=== PATIENT | female | born 1980 | race Caucasian/White ===

== ENCOUNTER 2018-05-06 13:30 | Inpatient (IN) ==
[2018-05-06 12:08] LABS: Protein/Creatinine Ratio,Urine 0.45 mg/mg (0.00-0.20)
[2018-05-06 12:46] LABS: Amphetamine Screen,Urine Negative ng/mL (Cutoff=1000); Barbiturate Screen,Urine Negative ng/mL (Cutoff=200)
[2018-05-06 12:47] LABS: Benzodiazepines Screen,Urine Negative ng/mL (Cutoff=300); Cannabinoid Screen,Urine Negative ng/mL (Cutoff = 50); Cocaine Screen,Urine Negative ng/mL (Cutoff= 300); Opiate Screen,Urine Negative ng/mL (Cutoff=300); Phencyclidine Screen,Urine Negative ng/mL (Cutoff=25)
[2018-05-06 12:51] LABS: Basophils % 0.3 %; Eosinophils # 0.1 K/mcL (0.0-0.6); Eosinophils % 0.7 %; Hematocrit 33.1 % (35.3-44.9); Hemoglobin 11.2 g/dL (11.5-15.4); Immature Granulocytes % 1.7 % (0-4); Lymphocytes # 1.9 K/mcL (0.6-4.6); Lymphocytes % 15.8 %; Mean Corpuscular HGB Conc 33.8 g/dL (31.6-35.5); Mean Corpuscular Hemoglobin 27.4 pg (28.0-33.3); Mean Corpuscular Volume 80.9 fL (83.0-100.0); Mean Platelet Volume 10.8 fL (9.4-12.4); Monocytes # 0.8 K/mcL (0.0-1.3); Monocytes % 6.4 %; Neutrophils # 9.1 K/mcL (1.6-8.9); Platelet Count 296 K/mcL (140-400); Red Blood Count 4.09 M/mcL (3.82-4.97); Red Cell Distribution Width 13.3 % (11.5-14.5); Segmented Neutrophils % 75.1 %
[2018-05-06] MEDS: Magnesium Sulfate 20 gm/500mL 20 GM/500 ML IV.SOLN IVC SCH ×2 (12:59→20:54)
--- NOTE | 2018-05-06 13:21 | OB/GYN History & Physical ---
Date of Encounter: 05/06/18 Time of Encounter: 13:07 Assessment and Plan (1) 33 weeks gestation of Current visit: Yes Status: Acute Admit to L&D for IOL. BMZ x 2 doses for Lung Maturity. PCN for GBS ppx. F/u GBS culture collected upon admission. Pt doesn't want her male infant circumcised. B pos, GBS unk, Sero neg. (2) Pre-eclampsia affecting , antepartum Current visit: Yes Status: Acute 6g magnesium sulfate loading does, 2g/hr continuous. 1g calcium gluconate to bedside. IVF rate to 125cc/hr max for all sources. Strict I/Os with bauman catheter to ground & I/O charting q 1hr. BP checks [id number] x 1hr, p55mxcc x 1hr, [id number] x 1hr & q1hr. Neuro/Mag checks q 1 hr by RN. (3) AMA (advanced maternal age) primigravida 35+ Current visit: Yes Status: Acute Qualifiers: Trimester: third trimester Qualified Code(s): O09.513 - Supervision of elderly primigravida, third trimester (4) Body mass index (BMI) of 40.1 to 44.9 in adult Current visit: Yes Status: Acute History of Present Illness Chief complaint: ELevated BP at home HPI: Ms. Damon is a 37 yo @ 33.6 wga by LMP, consistent with first trimester ultrasound, presents for evaluation of BP @ home. Her BP was 161/107 this morning. She checked her BP yesterday afternoon at work which was 140s systolic, because her feet were edematous. She checked this morning "just because". She denies any complications with this . +FM. She denies vaginal bleeding, LOF, CP, SOB, GRAMAJO, vision changes, RUQ/epigastric pain, ctxs/cramping, abnormal vaginal discharge or other complaints. She did take 1 Diflucan on the for a diagnosis of vaginal candidiasis by Dr. Colon on the . She's had routine PNC w/ [facility]. Past Med Surg Social Fam HX - Past Medical History Source: patient Medical history: kidney stones, venous stasis, other (obesity) Additional medical history: left collar bone sx Psychiatric history: no psych history - Past Surgical History Surgical History: other (2001- Left knee surgery, 2016- Left Clavical surgery, 22yo- wisdom teeth x4) - Social History Smoking Status: Former smoker (Pt stated "never smoker" on initial PNV & to me during H&P) Alcohol use: none Drug use: none Occupational status: employed Current living situation: Home Activity Level: Independent ambulation Recent Out of Country Travel Within the Last 8 Weeks: No Exposure or Possible Exposure to Illness During Travel: No - Additional Family History Additional family history: 2 aunts from Breast [place], no other LOCKSMITH [place] in family Obstetrical History - Pregnancies : 1 Para: 0 Term: 0 : 0 Ab's: 0 Livin - History/Complications 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 Denies h/o STIs or abnormal paps. LMP 09/11/17. Medications and Allergies One Daily Tablet 1 tab PO DAILY 05/06/18 [History] Allergy/AdvReac Type Severity Reaction Status Date / Time No Known Allergies Allergy Verified 05/06/18 12:50 Review of System OB ROS unobtainable: other (Negative outside of HPI) Exam - Vital Signs Vital signs: 179/96 upon presentation to L&D. 75bpm, 98.1F - Constitutional Constitutional: no acute distress, obese - HEENT HEENT: Normocephaly - Neck Neck exam: full ROM, trachea midline - Lungs Respiratory exam: CTAB - Cardiovascular Cardiovascular exam: RRR, +S1, +S2 - Abdomen Abdomen: Present: bowel sounds normal, gravid, non tender (obese) - Extremities Extremities exam: normal capillary refill, pedal edema (2+), warm Deep Tendon Reflex Grade: 2+ Normal - Cervix Dilation: 0 Station: -3 - Uterus Uterus exam: Present: normal size, normal contour Results Result Diagrams: 05/06/18 11:45 Abnormal lab results WBC 12.1 K/mcL (4.3-11.1) H 05/06/18 11:45 Hgb 11.2 g/dL (11.5-15.4) L 05/06/18 11:45 Hct 33.1 % (35.3-44.9) L 05/06/18 11:45 MCV 80.9 fL (83.0-100.0) L 05/06/18 11:45 MCH 27.4 pg (28.0-33.3) L 05/06/18 11:45 Neutrophils # 9.1 K/mcL (1.6-8.9) H 05/06/18 11:45 Protein/Creatinin Ratio 0.45 mg/mg (0.00-0.20) H 05/06/18 11:45 Urine Total Protein 105 mg/dL (1-14) H 05/06/18 11:45 All other labs normal. PNL: B pos, ab neg, GBS unk, GC/CT neg, HIV NR, Hep B neg, Rub Imm, Janki Imm, RPR NR, RUDS neg, genetic screening neg - VTE Reasons for not Prescribing Prophylaxis: Treatment not Indicated - Low risk for VTE Deep Vein Thrombosis/Pulmonary Embolism Present on Admission: No
[~2018-05-06 13:30] MED LIST: *HR* Labetalol 20 MG/4 ML SYRINGE IVP ONE; Betamethasone Acet/SodPhos 6 MG/ML MDV IM SCH; Calcium Gluconate 1,000 MG/10 ML VIAL IVPB PRN; Penicillin G Potassium 5,000,000 UNIT in 0.9 % Sodium Chloride Mini Bag 100 ML IVPB STA; Ringers Solution, Lactated 1,000 ML IVC SCH
[2018-05-06 13:51] LABS: Alanine Aminotransferase 35 Units/L (7-52); Aspartate Amino Transferase 15 Units/L (13-39); BUN/Creatinine Ratio 16 (6-26); Blood Urea Nitrogen 17 mg/dL (6-20); Lactate Dehydrogenase 140 Units/L (140-271); Uric Acid 6.6 mg/dL (2.3-7.6); eGFR For Non-African Americans 57 (> 60)
[2018-05-06] MEDS ORDERED: Epidural Premix (fent/bupiv) 110 ML EP SCH (14:15)
[2018-05-06] MEDS: miSOPROStol 25 MCG TABLET VG PRN ×2 (14:43→18:44)
--- NOTE | 2018-05-06 14:51 | OB/GYN Progress Note ---
Date of Encounter: 05/06/18 Time of Encounter: 14:48 - Assessment and Plan (1) 33 weeks gestation of Current Visit: Yes Status: Acute Admit to L&D for IOL. BMZ x 2 doses for Lung Maturity. PCN for GBS ppx. F/u GBS culture collected upon admission. Pt doesn't want her male circumcised. B pos, GBS unk, Sero neg. (2) Pre-eclampsia affecting , antepartum Current Visit: Yes Status: Acute 6g magnesium sulfate loading does, 2g/hr continuous. 1g calcium gluconate to bedside. IVF rate to 125cc/hr max for all sources. Strict I/Os with bauman catheter to ground & I/O charting q 1hr. BP checks [id number] x 1hr, j91svfi x 1hr, m99soby x 1hr & q1hr. Neuro/Mag checks q 1 hr by RN. (3) Encounter for induction of labor Current Visit: Yes Status: Acute Ripen w/ PV 25mcg of Cytotec q 3-4hrs. Cont EFM & TOCO. Pain management PRN. (4) AMA (advanced maternal age) primigravida 35+ Current Visit: Yes Status: Acute Qualifiers: Trimester: third trimester Qualified Code(s): O09.513 - Supervision of elderly primigravida, third trimester (5) Body mass index (BMI) of 40.1 to 44.9 in adult Current Visit: Yes Status: Acute Subjective - Subjective Principal diagnosis: Medical Induction of Labor Interval history: Physician to room to place first dose of 25mcg of PV Cytotec for cervical ripening. Bedside US performed to confirm vtx presentation, placenta is posterior-fundal. SVE: 1/0/-3, posterior & firm. Cytotec placed without difficulty. Pt tolerated well. FOB at bedside. Antepartum ROS: movement normal Objective - Vital Signs Vital Signs: Intake and Output 05/05/18 05/06/18 05/06/18 23:59 07:59 15:59 Other: Weight 106.8 kg Patient Weight 05/06/18 23:59 Weight 106.8 kg BPs for the past hour: 139-154/86-93 - Exam FHR: category 1 FHR comments: FHR Tracing; 120/mod priya/+accels/no decels TOCO: irritable Abdomen: Present: soft, gravid Cervical dilation: 1 Cervix effacement: 0 station: -3 Comments: Hamlin score: 1 - Labs Labs: Abnormal lab results WBC 12.1 K/mcL (4.3-11.1) H 05/06/18 11:45 Hgb 11.2 g/dL (11.5-15.4) L 05/06/18 11:45 Hct 33.1 % (35.3-44.9) L 05/06/18 11:45 MCV 80.9 fL (83.0-100.0) L 05/06/18 11:45 MCH 27.4 pg (28.0-33.3) L 05/06/18 11:45 Neutrophils # 9.1 K/mcL (1.6-8.9) H 05/06/18 11:45 Est GFR (Non-Af Amer) 57 (> 60) L 05/06/18 11:45 Protein/Creatinin Ratio 0.45 mg/mg (0.00-0.20) H 05/06/18 11:45 Urine Total Protein 105 mg/dL (1-14) H 05/06/18 11:45
[2018-05-06] MEDS ORDERED: *HR* Labetalol 20 MG/4 ML SYRINGE IVP STA (16:41)
[2018-05-06] MEDS ORDERED: Penicillin G Potassium 2,500,000 UNIT in 0.9 % Sodium Chloride 100 ML IVPB SCH (17:00)
[2018-05-06] MEDS ORDERED: Lidocaine -MPF 1% 5 ML AMPUL ONE ×2 (20:26→22:40)
[2018-05-06] MEDS ORDERED: Famotidine 20 MG/2 ML VIAL IVP ONE (22:32)
[2018-05-06] MEDS ORDERED: CeFAZolin Premix DUPLEX 2,000 MG/50 ML BAG IVPB ONE (22:32)
[2018-05-06] MEDS ORDERED: Metoclopramide 10 MG/2 ML VIAL IVP ONE (22:32)
[2018-05-06] MEDS ORDERED: Oxytocin 20 units/ LR 1000 mL 20 UNIT/1,000 ML BAG IVC ONE (22:32)
[2018-05-06] MEDS ORDERED: EPHEDrine 50 MG/ML VIAL ONE (22:40)
[2018-05-06] MEDS ORDERED: *HR* FentaNYL (PF) 100 MCG/2 ML VIAL ONE (22:40)
[2018-05-06] MEDS ORDERED: *HR* Oxytocin 10 UNIT/ML VIAL IM ONE (22:40)
[2018-05-06] MEDS ORDERED: *HR* Morphine Sulfate/PF 10 MG/10 ML AMPUL ONE (22:40)
[2018-05-06] MEDS ORDERED: Ondansetron 4 MG/2 ML VIAL ONE (22:40)
[2018-05-06] MEDS ORDERED: Ringers Solution, Lactated 1,000 ML ONE (22:41)
[2018-05-06] MEDS ORDERED: *HR* HYDROmorphone (PF) 1 MG/ML SYRINGE IVP PRN (22:47)
[2018-05-06] MEDS ORDERED: Ketamine *HR* 500 MG/10 ML MDV ONE (23:08)
--- NOTE | 2018-05-06 23:24 | Anesthesia Procedures ---
Date of Encounter: 05/06/18 Time of Encounter: 23:22 Procedures: Anesthesia - Epidural/Spinal Patient ID/Chart reviewed: Yes Patient examined: Yes OB Eval: Gestational age: 33.6 OB Eval: : 1 OB Eval: Hx Para: 0 OB Eval: Contractions: Non-stressed pattern Consent Obtained: Yes Supplemental Oxygen: Nasal Cannula Supplemental Oxygen Rate (L/min): 4 Site Prep: Aseptic Technique, Sterile prep and drape, Povidone-Iodine 1% Patient position: upright Local Anesthetic: Lidocaine 1% Amount of Local Anesthetic used: 3 Blood: No CSF: Yes Paresthesia: No Spinal Needle Gauge: 25 (Sprotte) Spinal Dose: 2ml .5% bupivacaine 15mcg fentanyl 0.2mg duramorph Procedure: pt tolerated procedure well. no complications. vss. fhr stable. Spinal time = 2302
--- NOTE | 2018-05-06 23:26 | Anesthesia Evaluation PreOp ---
Date of Encounter: 05/06/18 Time of Encounter: 23:24 - Past History Planned Operation: Primary c/s Cardiac History: HTN (Gestational. 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 History: Denies Any Significant HX Other Medical History: Denies Any Significant HX Anesthesia History: No Prior Anesthetic Complications, Past Anesthesia : Yes (33.6) Alcohol Use: none Drug use: none Medications and Allergies One Daily Tablet 1 tab PO DAILY 05/06/18 [History] Allergy/AdvReac Type Severity Reaction Status Date / Time No Known Allergies Allergy Verified 05/06/18 12:50 - Meds/Allergy Pre-op Review Medications Reviewed: Yes Allergies Reviewed: Yes Beta Blockers on Current Med List: Yes (05/06 792) Anesthesia Results - Labs 05/06/18 11:45 05/06/18 11:45 Anesthesia Exam O2 Sat Height 1.61 m Height 1.61 m Weight 106.8 kg Weight 106.8 kg NPO (# of Hours): 4 Pain Scale: 7 Pain Scale Used: Numeric (1 - 10) - HEENT Pupil (Motor): Pupils equal Mallampati: II Teeth: Normal Oral Opening: Greater than 3 - BACK SHOE CUTTER LOC: Oriented BACK SHOE CUTTER Motor: Normal RUE, Normal LUE, Normal RLE, Normal LLE, Normal Face BACK SHOE CUTTER Sensory: Normal: RUE, LUE, RLE, LLE, Face - Cardiac Rhythm: Regular Murmur: None JVD: No Carotid Bruit: No - Pulmonary Breath Sounds: bilateral Clear Respiratory Effort: Symmetrical Anesthesia Assess/Plan ASA Score: 3 Level of consciousness: Cooperative, Oriented Anesthetic Plan: Spinal Autologous Blood: Yes Monitoring Plan: Standard Monitors Recovery Plan: PACU
[2018-05-06] MEDS ORDERED: Bupivacaine/PF 0.75% in Dex 2 ML AMPUL INFILT ONE (23:38)
[2018-05-07] MEDS ORDERED: Metoclopramide 10 MG/2 ML VIAL IVP PRN ×2 (00:25→08:55)
[2018-05-07] MEDS ORDERED: Ondansetron 4 MG/2 ML VIAL IVP PRN ×2 (00:25→08:55)
[2018-05-07] MEDS ORDERED: *HR* OxyCODONE/APAP 5/325 TABLET PO PRN ×2 (00:25→08:55)
[2018-05-07] MEDS ORDERED: Oxytocin 20 units/ LR 1000 mL 20 UNIT/1,000 ML BAG IVC SCH ×2 (00:30→08:55)
[2018-05-07] MEDS ORDERED: Ketorolac 30 MG/ML VIAL IVP SCH ×2 (00:42→12:00)
--- NOTE | 2018-05-07 01:46 | OB/GYN Procedure Note ---
Section - Date of procedure: 05/06/18 Preop diagnosis: category 2 FHT tracing (persistent catergory 2), other (Pre- eclampsia with severe features, IUP @ 33.6 wga) Post-op diagnosis: same Procedure: section, primary low transverse Surgeon: Noelle Alba Blood Loss: 500 Was there an assistant offset press operator present: Yes Plate Mill Mill Hand: Em Sheets Anesthesiologist: Nasim Parkinson Quantitative Equity Head: Binu Wallace Anesthesia Type: Spinal section complications: none Disposition: L&D Recovery Room Specimens: Placenta, Cord blood, Cord gasses - Infant (s) Infant A Infant Delivery Date: 05/06/18 Delivery Time: 23:13 Presentation: vertex Gender: Male Viability: Viable Pounds: 4 Ounces: 13 Gram Weight: 2.18 kg at 1 minute: 6 at 5 minutes: 8 Shoulder Dystocia: not encountered Specimens collected: cord blood, venous cord gases, arterial cord gases Placenta: spontaneous - Narrative Narrative: Operation Performed Primary Low Transverse Section Indication for Surgery 37yo at 33.6 wga by LMP presented to labor and delivery for evaluation of elevated blood pressures at home. She was diagnosed with preeclampsia with severe features and started on magnesium sulfate. She received her first vaginal Cytotec at 1446, after which she had few, intermittent variable and late decelerations. Between these she would have moderate variability and accelerations. Her second dose of Cytotec was placed in 1800 hour following a category 1 heart rate tracing. Just before 2000 she began to experience recurrent late and variable decelerations. She would have minimal to moderate variability between these episodes. Position changes and O2 by nasal cannula slightly improved the heart rate variability, few accelerations were noted. The decelerations progressed in depth and took longer to recover. Minimal variability persisted. scalp stim did not elicit any accelerations. status was believed to be compromised and the patient was counseled to consider a primary section. The patient was informed of the risks and benefits of a section. Risks included but were not limited to bleeding, infection, injury to the presenting part of the fetus, injury to the bladder, bowel, ureters and the surrounding neurovasular bundles. The patient expressed understanding of the risks involved. All questions were answered and the patient consented to the procedure. Preoperative Diagnosis 1. IUP @ 33.6 wga 2. Persisting category 2 heart rate tracing 3. Class III obesity, BMI 41 4. Preeclampsia with severe features Postoperative Diagnosis Same Surgeon Noelle Lopez D.O. Plate [place] Mill Hand(s) Em Sheets Anesthesia Spinal with Duramorph Estimated Blood Loss 500 mL Urine Output 50 mL of clear yellow urine IV Fluids 1700 mL crystalloid Specimen(s) Placenta, Cord gasses, Cord blood Findings Live male , weighing 4 pounds and 13 ounces, with APGARS of 6/8. Normal appearing uterus, tubes and ovaries bilaterally. Complications None Technique The patient was taken to the operating room where a timeout was performed to confirm correct patient and correct procedure. Preoperative antibiotics were administered and spinal anesthesia was found to be adequate. Immediately prior to the patient lying down on the operating table, heart tones were seen to drop down into the 70s. The patient was prepped with Betadine solution and draped in the usual sterile fashion for a section, in supine position with a leftward tilt of the hips. A Pfannenstiel skin incision was made with a scalpel. Dissection to the fascia was carried out using blunt and sharp dissection. The fascia was incised with a scalpel and the incision was extended laterally using curved Donahue scissors. Jennifer clamps were used to tent up the superior edge of the fascia and the underlying rectus muscles were dissected off using blunt and sharp dissection. Attention was then turned to the inferior fascial edge and dissection carried out in a similar manner. The rectus muscles were then in the midline and the peritoneum was entered using blunt and sharp dissection. The peritoneum was grasped with hemostats at the superior aspect, care was taken to avoid the bladder, and incised with Metzenbaum scissors. The peritoneal incision was extended using light traction. A bladder blade was inserted, the vesicoperitoneal reflection was identified, and a bladder flap was created using Metzenbaum scissors and blunt dissection. The bladder blade was then replaced to protect the bladder. The lower uterine segment was incised with a scalpel in transverse fashion. The hysterotomy was extended laterally with blunt traction in cephalad and caudad directions. The fetus was in vertex presentation. The surgeon's hand was placed under the 's head and the delivered through the hysterotomy with the assistance of fundal pressure. The mouth and nose were bulb suctioned and the cord was clamped 2 and cut. The infant was safely transferred to the warmer for further care by the veterinary milk specialist. Cord blood and gases were obtained for routine testing. The placenta, with three-vessel cord, was expressed intact. The uterus was wiped clean of clots and debris before closing the hysterotomy with a running locked 0 Vicryl suture. A non-hemostatic area was noted inferior to the right apex of the hysterotomy. A single [id number] stitch was placed. Hemostasis was improved, however, oozing was noted where the sutures were placed through the serosa. A single sheet of Surgicel was placed to assist with hemostasis. Excellent hemostasis obtained. The rectus muscles and underlying peritoneum were reapproximated with 3-0 Vicryl in an interrupted fashion. The fascia was closed using Stratafix suture in a running nonlocked fashion. The subcutaneous tissue was closed with 0 plain suture in a running nonlocked fashion. The skin was closed with a subcuticular stitch of 4-0 Vicryl. The patient tolerated the procedure well At the end of the procedure, all needle sponge and instrument counts were noted to be correct 2. The patient tolerated the procedure well and was transferred to the recovery room in stable condition.
[2018-05-07] MEDS ORDERED: Acetaminophen 325 MG TABLET PO SCH ×2 (06:00→12:00)
[2018-05-07] MEDS: Magnesium Sulfate 20 gm/500mL 20 GM/500 ML IV.SOLN IVC SCH (07:22)
[2018-05-07] MEDS ORDERED: Magnesium Sulfate 20 gm/500mL 20 GM/500 ML IV.SOLN IVC SCH (08:55)
[2018-05-07] MEDS ORDERED: Calcium Gluconate 1,000 MG/10 ML VIAL IVPB PRN (08:55)
[2018-05-07] MEDS ORDERED: Ringers Solution, Lactated 1,000 ML IVC SCH (08:55)
[2018-05-07] MEDS ORDERED: Prenatal Vit/FA 1 EACH TABLET PO SCH (09:00)
[2018-05-07] MEDS ORDERED: Simethicone 80 MG TAB.CHEW PO SCH (09:00)
[2018-05-07 09:04] LABS: Basophils % 0.2 %; Hematocrit 32.4 % (35.3-44.9); Hemoglobin 10.6 g/dL (11.5-15.4); Immature Granulocytes % 1.8 % (0-4); Lymphocytes # 1.4 K/mcL (0.6-4.6); Lymphocytes % 6.6 %; Mean Corpuscular HGB Conc 32.7 g/dL (31.6-35.5); Mean Corpuscular Hemoglobin 27.1 pg (28.0-33.3); Mean Corpuscular Volume 82.9 fL (83.0-100.0); Mean Platelet Volume 10.8 fL (9.4-12.4); Monocytes # 1.2 K/mcL (0.0-1.3); Monocytes % 5.8 %; Neutrophils # 17.8 K/mcL (1.6-8.9); Platelet Count 286 K/mcL (140-400); Red Blood Count 3.91 M/mcL (3.82-4.97); Red Cell Distribution Width 13.5 % (11.5-14.5); Segmented Neutrophils % 85.6 %
--- NOTE | 2018-05-07 11:13 | OB/GYN Progress Note ---
Date of Encounter: 05/07/18 Time of Encounter: 10:00 - Assessment and Plan (1) Pre-eclampsia affecting , antepartum Current Visit: Yes Status: Acute 37yo s/p pLTCS for NRFWB in the setting of an IOL for severe pre-eclampsia. 1. management - pain controlled with po/IV regimen - bauman in place with adequate output - not yet ambulating with IV Mag (24hr PP) - EBL ~500mL, no si/sx of ABL anemia - patient did not require PP IV ABx, intact prior to CS - repeat CBC in AM on POD#2 2. Severe PReE - IOL at 33wks for severe PreE - currently with 24hr IV Mag - denies si/sx of PReE: no GRAMAJO/Cp/SOB/difficulty breathing - bauman in place and patient not to ambulate until completion of IV MAg - OK for crackers and clears, will ADAT once patient completes 24hr Dispo: Will continue to progress toward PP Milestones. Once IV Mag is complete, we will remove the bauman, ADAT, and allow patient to ambulate. MD ARIEL Subjective - Subjective Principal diagnosis: PLTCS Interval history: Patient started on IV Magnesium in the PP setting following STAT pLTCS, failed IOL for NRFWB. Patient reports: appetite normal, pain well controlled (Patient is still on IV magnesium until completion of 24hrs. Bauman in place, not yet ambulating, only OK for crackers PP until completed 24hr. PAin is adequately controlled on PO/IV regmen, and IVF are continued. Denies GRAMAJO/SP/SOB, denies blurry vision or RUQ pain.) [place]: doing well Objective - Vital Signs Latest vital signs: Vital Signs Temp Pulse Pulse Resp BP Pulse Ox 05/07/18 11:00 74 16 110/72 05/07/18 10:00 73 16 113/73 05/07/18 09:00 74 16 111/72 05/07/18 08:00 97.4 F L 78 78 16 113/73 95 05/07/18 07:00 97.8 F 78 16 104/63 93 05/07/18 06:00 97.7 F 77 26 113/70 95 05/07/18 05:00 97.6 F 78 16 116/70 93 05/07/18 04:00 97.8 F 77 16 126/74 94 05/07/18 03:00 97.5 F L 73 16 116/69 93 05/07/18 02:30 97.8 F 73 16 118/72 94 Intake and Output 05/06/18 05/07/18 05/07/18 23:59 07:59 15:59 Intake Total 500 / 500 500 / 500 Output Total 850 / 850 530 / 530 375 / 375 Balance -350 / -350 -30 / -30 -375 / -375 Intake: IV Fluids 500 / 500 500 / 500 Magnesium Sulfate Premix 20 gm/ 500 / 500 500 / 500 500mL 20 gm In 500 ml @ 2 GM/HR 50 mls/hr IVC .Q10H ERA Rx#: [id number] Output: Urine 530 / 530 375 / 375 Straight Cath 150 / 150 Catheter 700 / 700 - Exam Lungs: bilateral: normal Chest: Normal S1, Normal S2 Extremities: Present: normal Abdomen: Present: normal appearance, soft, gravid Incision: Present: normal, dry, intact, dressed (Wound VAC on incision.) Uterus: Present: normal - Labs Labs: Laboratory Results - last 24 hr 05/06/18 05/06/18 05/06/18 11:45 11:45 11:45 WBC 12.1 H RBC 4.09 Hgb 11.2 L Hct 33.1 L MCV 80.9 L MCH 27.4 L MCHC 33.8 RDW 13.3 Plt Count 296 MPV 10.8 Immature Gran % 1.7 Seg Neutrophils % 75.1 Lymphocytes % 15.8 Monocytes % 6.4 Eosinophils % 0.7 Basophils % 0.3 Neutrophils # 9.1 H Lymphocytes # 1.9 Monocytes # 0.8 Eosinophils # 0.1 Basophils # 0.0 BUN Creatinine Est GFR ( Amer) Est GFR (Non-Af Amer) BUN/Creatinine Ratio Uric Acid AST ALT Lactate Dehydrogenase Urine Creatinine 234 Protein/Creatinin Ratio 0.45 H Urine Total Protein 105 H Urine Opiates Screen Negative Ur Barbiturates Screen Negative Ur Phencyclidine Scrn Negative Ur Amphetamines Screen Negative U Benzodiazepines Scrn Negative Urine Cocaine Screen Negative U Marijuana (THC) Screen Negative Ur Drug Screen Interp See Below 05/06/18 05/07/18 11:45 07:40 WBC 20.8 H D RBC 3.91 Hgb 10.6 L Hct 32.4 L MCV 82.9 L MCH 27.1 L MCHC 32.7 RDW 13.5 Plt Count 286 MPV 10.8 Immature Gran % 1.8 Seg Neutrophils % 85.6 Lymphocytes % 6.6 Monocytes % 5.8 Eosinophils % 0.0 Basophils % 0.2 Neutrophils # 17.8 H Lymphocytes # 1.4 Monocytes # 1.2 Eosinophils # 0.0 Basophils # 0.0 BUN 17 Creatinine 1.09 Est GFR ( Amer) > 60 Est GFR (Non-Af Amer) 57 L BUN/Creatinine Ratio 16 Uric Acid 6.6 AST 15 ALT 35 Lactate Dehydrogenase 140 Urine Creatinine Protein/Creatinin Ratio Urine Total Protein Urine Opiates Screen Ur Barbiturates Screen Ur Phencyclidine Scrn Ur Amphetamines Screen U Benzodiazepines Scrn Urine Cocaine Screen U Marijuana (THC) Screen Ur Drug Screen Interp
[2018-05-07] MEDS: Prenatal Vit/FA 1 EACH TABLET PO SCH (12:05)
[2018-05-07] MEDS: Ibuprofen 600 MG TABLET PO SCH ×2 (12:06→19:58)
[2018-05-07] MEDS: Simethicone 80 MG TAB.CHEW PO SCH ×2 (12:07→19:58)
[2018-05-07] MEDS ORDERED: Ringers Solution, Lactated 1,000 ML IVC ONE (12:39)
--- NOTE | 2018-05-07 12:43 | Event Note ---
Date of Encounter: 05/07/18 Time of Encounter: 12:39 Called to patient bedside to speak with regarding need for IV Magnesium. Patient and patient had question(S) regarding the necessity of IV Mag for 24hr following delivery as her BP had nromalized after baby was delivered. We discussed what exactly pre-eclampsia is, as well as ecclampsia. We discussed the mutliple risks associated with someone diagnosed with Severe PreE, especially one that required an emergent delivery for NRFWB at 33wks GA. Patient and patient had question(S) regarding the side effects of IV magnesium, as well as if she could stop at 18hr. Again, recommendation(s) for severe pre-eclampsia is to continue IV Mag for a total of 24hr PP, regardless of time spent intrapartum on IV magnesium. We agreed to order a STAT Mag level as well as q4hr until we reachd 18hr. She has not required anti-hypertensive medication(s) since intrapartum. Patient is voiding adequately but is borderline low. STAT IVF bolus ordered 1L. Will f/u on mag level. MD ARIEL
[2018-05-08] MEDS: Ibuprofen 600 MG TABLET PO SCH ×3 (01:25→16:28)
--- NOTE | 2018-05-08 07:18 | OB/GYN Progress Note ---
Date of Encounter: 05/08/18 Time of Encounter: 07:12 - Assessment and Plan (1) Pre-eclampsia affecting , antepartum Current Visit: Yes Status: Acute 37yo s/p pLTCS for NRFWB in the setting of an IOL for severe pre-eclampsia, POD#2 1. management - STAT pLTCS on 05/06/2018 - pain controlled with po/IV regimen - bauman removed this AM, awaiting spontaneously void - EBL ~500mL, no si/sx of ABL anemia - patient to ambulate this AM 2. Severe PReE - IOL at 33wks for severe PreE - completed 18hr of IV Mag, stopped early with concern for mag toxicity - continued IV hydration overnight, repeat MAG level this AM (>8 on 05/07) - UOP adequate, bauman removed this AM; awaiting spontaneous void - denies si/sx of PReE: no GRAMAJO/Cp/SOB/difficulty breathing - regular DIET ordered: denies n/v/d Dispo: Will continue to progress toward PP Milestones. Likely for discharge to home tomorrow on 05/09/2018. MD ARIEL Subjective - Subjective Principal diagnosis: POD#2 s/p STAT pLTCS Interval history: S/p 18hr Magnesium for Severe Preeclampsia. Seen yesterday afternoon with decreased reflexes, difficulty moving limbs. Concern for mag toxicity. STAT Mag level was >8, therefore we discontinued the IV Mag, and continued with IV hydration to ultimately flush out the excess mag. Since this time, the patient has been doing well with signs of significant improvement. Since delivery, her blood pressures have remained 110s/70-80s. No si/sx of persistent pre-ecl ampsia: GRAMAJO/CP/SOB, difficulty breathing, blurry vision, RUQ pain. We continued with IV fluids overnight and kept her bauman in place to ensure appropriate urine output. Overnight her urine output was yellow with pink hue early in the evening. Her bauman was removed this morning with plans to ensure independent voiding. Repeat MAG level drawn this morning. Patient reports: appetite normal, voiding normally, pain well controlled, ambulating normally [place]: doing well Objective - Vital Signs Latest vital signs: Vital Signs Temp Pulse Pulse Resp BP Pulse Ox 05/08/18 05:00 98.2 F 69 16 128/78 97 05/08/18 00:00 98.3 F 72 16 135/84 93 05/07/18 19:55 98.2 F 71 16 124/79 95 05/07/18 18:00 16 05/07/18 17:05 97.4 F L 78 16 123/81 93 05/07/18 13:51 63 14 114/74 05/07/18 13:00 68 16 115/71 05/07/18 12:00 97.4 F L 68 16 115/67 95 05/07/18 11:00 74 16 110/72 05/07/18 10:00 73 16 113/73 05/07/18 09:00 74 16 111/72 05/07/18 08:00 97.4 F L 78 78 16 113/73 95 Intake and Output 05/07/18 05/07/18 05/08/18 15:59 23:59 07:59 Intake Total 200 / 200 Output Total 515 / 515 1350 / 1350 1080 / 1080 Balance -515 / -515 -1350 / -1350 -880 / -880 Intake: Oral 200 / 200 Output: Urine 515 / 515 Catheter 1350 / 1350 1080 / 1080 Other: Weight 106.685 kg Patient Weight 05/08/18 23:59 Weight 106.685 kg - Exam Lungs: bilateral: normal Extremities: Present: normal Abdomen: Present: normal appearance, soft, gravid Incision: Present: normal, dry, intact, dressed (chavez wound vac in place for 7 days) Uterus: Present: normal - Labs Labs: Laboratory Results - last 24 hr 05/07/18 05/07/18 07:40 13:30 WBC 20.8 H D RBC 3.91 Hgb 10.6 L Hct 32.4 L MCV 82.9 L MCH 27.1 L MCHC 32.7 RDW 13.5 Plt Count 286 MPV 10.8 Immature Gran % 1.8 Seg Neutrophils % 85.6 Lymphocytes % 6.6 Monocytes % 5.8 Eosinophils % 0.0 Basophils % 0.2 Neutrophils # 17.8 H Lymphocytes # 1.4 Monocytes # 1.2 Eosinophils # 0.0 Basophils # 0.0 Magnesium > 8.0 H
[2018-05-08] MEDS: Prenatal Vit/FA 1 EACH TABLET PO SCH (08:26)
[2018-05-08] MEDS: Simethicone 80 MG TAB.CHEW PO SCH (20:07)
[2018-05-09] MEDS ORDERED: Ibuprofen 600 MG TABLET PO SCH (04:00)
[2018-05-09 05:14] LABS: Basophils # 0.1 K/mcL (0.0-0.2); Basophils % 0.4 %; Eosinophils # 0.2 K/mcL (0.0-0.6); Eosinophils % 1.5 %; Hematocrit 30.2 % (35.3-44.9); Hemoglobin 9.7 g/dL (11.5-15.4); Immature Granulocytes % 2.8 % (0-4); Lymphocytes # 2.4 K/mcL (0.6-4.6); Lymphocytes % 20.7 %; Mean Corpuscular HGB Conc 32.1 g/dL (31.6-35.5); Mean Corpuscular Hemoglobin 27.2 pg (28.0-33.3); Mean Corpuscular Volume 84.6 fL (83.0-100.0); Mean Platelet Volume 10.6 fL (9.4-12.4); Monocytes # 0.9 K/mcL (0.0-1.3); Monocytes % 7.4 %; Neutrophils # 7.9 K/mcL (1.6-8.9); Nucleated Red Blood Cells 0.2 /100 WBC (0); Platelet Count 280 K/mcL (140-400); Red Blood Count 3.57 M/mcL (3.82-4.97); Red Cell Distribution Width 14.1 % (11.5-14.5); Segmented Neutrophils % 67.2 %
[2018-05-09 05:32] LABS: Alanine Aminotransferase 19 Units/L (7-52); Aspartate Amino Transferase 18 Units/L (13-39); BUN/Creatinine Ratio 20 (6-26); Blood Urea Nitrogen 22 mg/dL (6-20); Lactate Dehydrogenase 203 Units/L (140-271); Uric Acid 6.5 mg/dL (2.3-7.6); eGFR For Non-African Americans 57 (> 60)
[2018-05-09] MEDS: Prenatal Vit/FA 1 EACH TABLET PO SCH (08:23)
[2018-05-09] MEDS: Ibuprofen 600 MG TABLET PO SCH ×2 (08:24→20:35)
--- NOTE | 2018-05-09 09:50 | OB/GYN Progress Note ---
Date of Encounter: 05/09/18 Time of Encounter: 09:47 - Assessment and Plan (1) Status post primary low transverse section Current Visit: Yes Status: Acute S/P section day 2. Continue routine care/post op care. Meeting appropriate milestones. Anticipate discharge on day 3 or 4 (2) Pre-eclampsia Current Visit: Yes Status: Acute Repeat labs in AM Monitor vitals increase labetalol to TID POC per consult with Dr Castro Qualifiers: Trimester: unspecified trimester Qualified Code(s): O14.90 - Unspecified pre-eclampsia, unspecified trimester Subjective - Subjective Principal diagnosis: Status post Interval history: S/P section day 2. Pt states pain is well controlled and bleeding is light. Per pt voiding normally. Elevated blood pressures overnight; increased labetalol to TID, labs WNL Anticipate discharge home tomorrow Patient reports: appetite normal, voiding normally, dizzy ambulation, pain well controlled, ambulating normally [place]: in NICU Objective - Vital Signs Latest vital signs: Vital Signs Temp Pulse Resp BP Pulse Ox 05/09/18 04:00 98.6 F 69 16 149/94 95 05/08/18 23:30 98.2 F 72 16 147/94 97 05/08/18 21:00 72 137/85 05/08/18 20:10 98.6 F 80 14 153/96 95 05/08/18 16:20 98.3 F 85 18 157/90 95 05/08/18 12:40 139/86 05/08/18 12:00 98.6 F 81 14 137/82 95 Intake and Output 05/08/18 05/09/18 05/09/18 23:59 07:59 15:59 Intake Total 1240 / 1240 900 / 900 Output Total 2049 1000 / 1000 Balance -810 / -810 -100 / -100 Intake: Oral 1240 / 1240 900 / 900 Output: Urine 2049 1000 / 1000 Other: Meal Dinner Percent of Meal Consumed 90% Weight 105.233 kg Patient Weight 05/09/18 23:59 Weight 105.233 kg - Exam Lungs: bilateral: normal Chest: Normal S1, Normal S2 Extremities: Present: normal Abdomen: Present: normal appearance, soft, tenderness Incision: Present: normal, dry, intact Uterus: Present: normal, firm Fundal Height: 0 (u/1) Comments: Reflexes 2+ - Labs Labs: Laboratory Results - last 24 hr 05/09/18 05/09/18 04:35 04:35 WBC 11.7 H RBC 3.57 L Hgb 9.7 L Hct 30.2 L MCV 84.6 MCH 27.2 L MCHC 32.1 RDW 14.1 Plt Count 280 MPV 10.6 Immature Gran % 2.8 Seg Neutrophils % 67.2 Lymphocytes % 20.7 Monocytes % 7.4 Eosinophils % 1.5 Basophils % 0.4 Neutrophils # 7.9 Lymphocytes # 2.4 Monocytes # 0.9 Eosinophils # 0.2 Basophils # 0.1 Nucleated RBCs/100 WBC 0.2 H BUN 22 H Creatinine 1.09 Est GFR ( Amer) > 60 Est GFR (Non-Af Amer) 57 L BUN/Creatinine Ratio 20 Uric Acid 6.5 AST 18 ALT 19 Lactate Dehydrogenase 203
[2018-05-09] MEDS: Simethicone 80 MG TAB.CHEW PO SCH (23:03)
[2018-05-10] MEDS ORDERED: Ibuprofen 600 MG TABLET PO SCH
[2018-05-10] MEDS: Ibuprofen 600 MG TABLET PO SCH ×3 (02:04→16:46)
[2018-05-10 04:33] LABS: Basophils # 0.1 K/mcL (0.0-0.2); Basophils % 0.6 %; Eosinophils # 0.3 K/mcL (0.0-0.6); Eosinophils % 2.9 %; Immature Granulocytes % 2.2 % (0-4); Lymphocytes # 2.5 K/mcL (0.6-4.6); Lymphocytes % 26.2 %; Mean Corpuscular HGB Conc 32.3 g/dL (31.6-35.5); Mean Corpuscular Hemoglobin 27.2 pg (28.0-33.3); Mean Corpuscular Volume 84.2 fL (83.0-100.0); Mean Platelet Volume 10.3 fL (9.4-12.4); Monocytes # 0.6 K/mcL (0.0-1.3); Monocytes % 6.6 %; Neutrophils # 5.8 K/mcL (1.6-8.9); Platelet Count 297 K/mcL (140-400); Red Blood Count 3.68 M/mcL (3.82-4.97); Red Cell Distribution Width 14.2 % (11.5-14.5); Segmented Neutrophils % 61.5 %
[2018-05-10] MEDS ORDERED: NIFEdipine 10 MG CAPSULE PO ONE ×2 (04:47→05:27)
[2018-05-10 04:48] LABS: Alanine Aminotransferase 39 Units/L (7-52); Aspartate Amino Transferase 37 Units/L (13-39); BUN/Creatinine Ratio 18 (6-26); Blood Urea Nitrogen 17 mg/dL (6-20); Lactate Dehydrogenase 232 Units/L (140-271); Uric Acid 6.2 mg/dL (2.3-7.6); eGFR For Non-African Americans > 60 (> 60)
[2018-05-10] MEDS: Prenatal Vit/FA 1 EACH TABLET PO SCH (08:47)
[2018-05-10] MEDS: Simethicone 80 MG TAB.CHEW PO SCH ×3 (08:48→21:20)
--- NOTE | 2018-05-10 16:33 | OB/GYN Progress Note ---
Date of Encounter: 05/10/18 Time of Encounter: 16:30 - Assessment and Plan (1) Pre-eclampsia Current Visit: Yes Status: Acute Pt denies s/sx preeclampsia. BP's severe range overnight. Mild range this afternoon despite 400mg labetalol BID. Plan to increase labetalol to TID. Continue to monitor BP's tonight and adjust medications as needed. POC per Dr. Rodriguez. Anticipate discharge home POD5. Qualifiers: Trimester: unspecified trimester Qualified Code(s): O14.90 - Unspecified pre-eclampsia, unspecified trimester (2) Status post primary low transverse section Current Visit: Yes Status: Acute Pt meeting all post-op milestones. Anticipate discharge home once BP's well controlled. Subjective - Subjective Interval history: Pt reports feeling well. She denies GRAMAJO, vision changes or epigastric pain. She admits some abdominal tenderness. Patient reports: appetite normal, voiding normally, pain well controlled, ambulating normally : doing well, in NICU Objective - Vital Signs Latest vital signs: Vital Signs Temp Pulse Resp BP Pulse Ox 05/10/18 14:33 97.9 F 66 18 148/94 96 05/10/18 11:00 97.8 F 76 20 133/82 95 05/10/18 09:22 98.2 F 102 14 137/86 96 05/10/18 05:57 143/89 05/10/18 05:22 160/100 05/10/18 04:50 187/108 05/10/18 04:00 97.5 F L 69 16 168/98 96 05/09/18 23:34 98.3 F 75 16 148/85 95 05/09/18 21:00 98.4 F 80 16 158/101 96 Intake and Output 05/10/18 05/10/18 05/10/18 07:59 15:59 23:59 Intake Total 500 / 500 320 / 320 Output Total 900 / 900 Balance -400 / -400 320 / 320 Intake: Oral 500 / 500 320 / 320 Output: Urine 900 / 900 Other: Meal Breakfast Percent of Meal Consumed 75% Weight 104.734 kg Patient Weight 05/10/18 23:59 Weight 104.734 kg - Exam Lungs: bilateral: normal Chest: Normal S1, Normal S2 Extremities: Present: edema (1+ bilaterally, no erythema or warmth) Abdomen: Present: soft Incision: Present: dressed (GAYATRI with scant amount old drainage) Uterus: Present: firm Fundal Height: 1 (U/1) - Labs Labs: Laboratory Results - last 24 hr 05/10/18 05/10/18 04:00 04:00 WBC 9.4 RBC 3.68 L Hgb 10.0 L Hct 31.0 L MCV 84.2 MCH 27.2 L MCHC 32.3 RDW 14.2 Plt Count 297 MPV 10.3 Immature Gran % 2.2 Seg Neutrophils % 61.5 Lymphocytes % 26.2 Monocytes % 6.6 Eosinophils % 2.9 Basophils % 0.6 Neutrophils # 5.8 Lymphocytes # 2.5 Monocytes # 0.6 Eosinophils # 0.3 Basophils # 0.1 BUN 17 Creatinine 0.95 Est GFR ( Amer) > 60 Est GFR (Non-Af Amer) > 60 BUN/Creatinine Ratio 18 Uric Acid 6.2 AST 37 ALT 39 Lactate Dehydrogenase 232
[2018-05-11] MEDS ORDERED: NIFEdipine XL (24 HR) 30 MG TAB.ER.24 PO SCH (00:30)
[2018-05-11 08:41] VITALS: BP 139/88
[2018-05-11] MEDS: Prenatal Vit/FA 1 EACH TABLET PO SCH (09:21)
[2018-05-11] MEDS: Ibuprofen 600 MG TABLET PO SCH (09:22)
--- NOTE | 2018-05-11 10:17 | Discharge Summary ---
Date of Encounter: 05/11/18 Time of Encounter: 10:14 - Discharge Diagnosis (1) Pre-eclampsia Priority: Secondary Status: Acute Comments: Discussed BPs, labs and medications with Dr. Horvath. Dr. Horvath recommends discharge home with labetalol 400mg po TID and patient to continue to monitor BPs at home and follow up in 1 week for BP check. Qualifiers: Trimester: unspecified trimester Qualified Code(s): O14.90 - Unspecified pre-eclampsia, unspecified trimester (2) Status post primary low transverse section Priority: Primary Status: Acute Comments: Continue routine postop/ care discharge home today follow up with Dr. Lopez in 1 week for incision - Discharge Medications Prescriptions: New Ibuprofen [Motrin] 600 mg PO Q6H #30 tablet Labetalol [Trandate] 400 mg PO TID 30 Days tablet Continue One Daily Tablet 1 tab PO DAILY Home Medications: One Daily Tablet 1 tab PO DAILY 05/06/18 [History] Ibuprofen [Motrin] 600 mg PO Q6H #30 tablet 05/11/18 [Rx] Labetalol [Trandate] 400 mg PO TID 30 Days tablet 05/11/18 [Rx] Allergies/Adverse Reactions: Allergy/AdvReac Type Severity Reaction Status Date / Time No Known Allergies Allergy Verified 05/06/18 12:50 Data Procedures and tests throughout hospitalization: Laboratory Tests 05/06/18 05/06/18 05/06/18 11:45 11:45 11:45 WBC 12.1 H RBC 4.09 Hgb 11.2 L Hct 33.1 L MCV 80.9 L MCH 27.4 L MCHC 33.8 RDW 13.3 Plt Count 296 MPV 10.8 Immature Gran % 1.7 Seg Neutrophils % 75.1 Lymphocytes % 15.8 Monocytes % 6.4 Eosinophils % 0.7 Basophils % 0.3 Neutrophils # 9.1 H Lymphocytes # 1.9 Monocytes # 0.8 Eosinophils # 0.1 Basophils # 0.0 Nucleated RBCs/100 WBC BUN Creatinine Est GFR ( Amer) Est GFR (Non-Af Amer) BUN/Creatinine Ratio Uric Acid Magnesium AST ALT Lactate Dehydrogenase Urine Creatinine 234 Protein/Creatinin Ratio 0.45 H Urine Total Protein 105 H Urine Opiates Screen Negative Ur Barbiturates Screen Negative Ur Phencyclidine Scrn Negative Ur Amphetamines Screen Negative U Benzodiazepines Scrn Negative Urine Cocaine Screen Negative U Marijuana (THC) Screen Negative Ur Drug Screen Inter See Below 05/06/18 05/07/18 05/07/18 11:45 07:40 13:30 WBC 20.8 H D RBC 3.91 Hgb 10.6 L Hct 32.4 L MCV 82.9 L MCH 27.1 L MCHC 32.7 RDW 13.5 Plt Count 286 MPV 10.8 Immature Gran % 1.8 Seg Neutrophils % 85.6 Lymphocytes % 6.6 Monocytes % 5.8 Eosinophils % 0.0 Basophils % 0.2 Neutrophils # 17.8 H Lymphocytes # 1.4 Monocytes # 1.2 Eosinophils # 0.0 Basophils # 0.0 Nucleated RBCs/100 WBC BUN 17 Creatinine 1.09 Est GFR ( Amer) > 60 Est GFR (Non-Af Amer) 57 L BUN/Creatinine Ratio 16 Uric Acid 6.6 Magnesium > 8.0 H AST 15 ALT 35 Lactate Dehydrogenase 140 Urine Creatinine Protein/Creatinin Ratio Urine Total Protein Urine Opiates Screen Ur Barbiturates Screen Ur Phencyclidine Scrn Ur Amphetamines Screen U Benzodiazepines Scrn Urine Cocaine Screen U Marijuana (THC) Screen Ur Drug Screen Interp 05/08/18 05/09/18 05/09/18 07:23 04:35 04:35 WBC 11.7 H RBC 3.57 L Hgb 9.7 L Hct 30.2 L MCV 84.6 MCH 27.2 L MCHC 32.1 RDW 14.1 Plt Count 280 MPV 10.6 Immature Gran % 2.8 Seg Neutrophils % 67.2 Lymphocytes % 20.7 Monocytes % 7.4 Eosinophils % 1.5 Basophils % 0.4 Neutrophils # 7.9 Lymphocytes # 2.4 Monocytes # 0.9 Eosinophils # 0.2 Basophils # 0.1 Nucleated RBCs/100 WBC 0.2 H BUN 22 H Creatinine 1.09 Est GFR ( Amer) > 60 Est GFR (Non-Af Amer) 57 L BUN/Creatinine Ratio 20 Uric Acid 6.5 Magnesium 3.8 H AST 18 ALT 19 Lactate Dehydrogenase 203 Urine Creatinine Protein/Creatinin Ratio Urine Total Protein Urine Opiates Screen Ur Barbiturates Screen Ur Phencyclidine Scrn Ur Amphetamines Screen U Benzodiazepines Scrn Urine Cocaine Screen U Marijuana (THC) Screen Ur Drug Screen Interp 05/10/18 05/10/18 04:00 04:00 WBC 9.4 RBC 3.68 L Hgb 10.0 L Hct 31.0 L MCV 84.2 MCH 27.2 L MCHC 32.3 RDW 14.2 Plt Count 297 MPV 10.3 Immature Gran % 2.2 Seg Neutrophils % 61.5 Lymphocytes % 26.2 Monocytes % 6.6 Eosinophils % 2.9 Basophils % 0.6 Neutrophils # 5.8 Lymphocytes # 2.5 Monocytes # 0.6 Eosinophils # 0.3 Basophils # 0.1 Nucleated RBCs/100 WBC BUN 17 Creatinine 0.95 Est GFR ( Amer) > 60 Est GFR (Non-Af Amer) > 60 BUN/Creatinine Ratio 18 Uric Acid 6.2 Magnesium AST 37 ALT 39 Lactate Dehydrogenase 232 Urine Creatinine Protein/Creatinin Ratio Urine Total Protein Urine Opiates Screen Ur Barbiturates Screen Ur Phencyclidine Scrn Ur Amphetamines Screen U Benzodiazepines Scrn Urine Cocaine Screen U Marijuana (THC) Screen Ur Drug Screen Interp Date of admission: 05/06/18 13:31 Primary care physician: Fifi Spencer CNP Discharging clinician: Jessy Gar Anticipated date of discharge: 05/11/18 - Patient Status Disposition: Home, Self-Care Condition: Good Functional capacity at discharge: independent ambulation - Discharge Instructions Follow Up With: Fifi Spencer CNP [Primary Care Provider] - Noelle Lopez [Partnered Physician] - - Diet and Activity Activity: increase activity as tolerated Diet: regular diet Hospital Course Reason for admission: pre-eclampsia Delivery: section Episiotomy: none Laceration: none Other procedures: none complications: none Discharge diagnosis: delivery [place] baby: male (breast feeding) Time Attestation: Total time spent providing and/or coordinating discharge services: Time Spent: Less than 30 minutes - VTE Reasons for not Prescribing Prophylaxis: Treatment not Indicated - Low risk for VTE Documentation of Mechanical Device: Intermittent pneumatic compression device Deep Vein Thrombosis/Pulmonary Embolism Present on Admission: No Exam - Constitutional Vitals: Temp Pulse Resp BP Pulse Ox 97.7 F 81 16 139/88 95 05/11/18 08:40 05/11/18 08:40 05/11/18 08:40 05/11/18 08:40 05/11/18 06:48 General appearance IM: A&O X 3, pleasant, answers questions appropriately - Respiratory Respiratory exam: Present: CTAB - Cardiovascular Cardiovascular exam IM: Present: RRR, +S1, +S2 - GI/Abdominal GI/Abdominal exam IM: normal bowel sounds Incision: normal, dry, dressed (GAYATRI dressing) - Uterine Tone: Firm Uterus Position: 4 Fingers Below Umbilicus, Midline - Extremities Exam Extremities exam IM: Present: full ROM, normal capillary refill, normal inspection - Neurological Exam Neurological exam: alert, oriented X3, reflexes normal
== END 2018-05-11 10:34 | disposition home or self-care (01) | DRG 788 ==
LOC: 1NENULAB → 1NENUOBS 05-07 03:30
PROVIDERS: ADMIT Obstetrics & Gynecology; ATTEND Obstetrics & Gynecology